=== PATIENT | female | born 1955 | race Two or more races ===

== ENCOUNTER 2024-09-12 09:45 | Outpatient (CLI) | payer OTHER | END 2024-09-12 09:53 | disposition home or self-care (01) | LOC: RAD 09:45 | PROVIDERS: ATTEND Orthopaedic Surgery | DX: M41.9 Scoliosis, unspecified (principal) ==

== ENCOUNTER 2025-09-21 10:50 | Outpatient (CLI) | payer OTHER | END 2025-09-21 10:57 | disposition home or self-care (01) | LOC: RAD 10:50 | DX: M54.40 Lumbago with sciatica, unspecified side (principal); M47.26 Other spondylosis with radiculopathy, lumbar region; M99.73 Connective tissue and disc stenosis of intervertebral foramina of lumbar region; M41.56 Other secondary scoliosis, lumbar region; R27.0 Ataxia, unspecified; M47.12 Other spondylosis with myelopathy, cervical region; M62.838 Other muscle spasm; E11.8 Type 2 diabetes mellitus with unspecified complications; G62.9 Polyneuropathy, unspecified; E66.09 Other obesity due to excess calories ==